=== PATIENT | female | born 1960 | race Caucasian/White ===

== ENCOUNTER → 2018-01-27 | Outpatient (REF) ==
[~2018-01-27] MED LIST: ALBU8.5H12 IH; ALP25 PO; AZIT500T47 PO; CEP500 PO; CETI10CA8 PO; CYCL10TA29 PO; KET10 PO; OMEP40CA48 PO; PRE20 PO; PROGESTERONE CREAM; SERT-179 PO; SERT-181 PO; SIMV10TA98 PO; TRAZ50 PO; ZOLP12.545 PO
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
--- NOTE | 2018-01-27 15:07 | RADIOLOGY IMAGING REPORT ---
FACILITY: [facility] [place] PATIENT NAME: Tye Beltran : 1960 MR: [id number] V: [id number] EXAM DATE: ORDERING PHYSICIAN: CARISA GRIMALDO TECHNOLOGIST: Location: [facility] Patient: Tye Beltran : 1960 Visit/Account:[id number] Date of Sevice: 01/27/2018 EXAMINATION: MRI Cervical spine without intravenous contrast HISTORY: Chronic neck pain. COMPARISON: Cervical spine radiographs dated 01/13/2006. TECHNIQUE: Multi-planar, multi-sequence cervical spine MRI was performed without intravenous contras t administration. FINDINGS: Alignment: Normal. Vertebral marrow signal: Small hemangioma in the left side of the T3 vertebral body. Mild discogenic bone marrow edema on the right at C4-C5. Mild reactive edema in the dens and right lateral mass of C1. Cranio-cervical junction: Degenerative changes in the atlantodental joint and right atlantoaxial join t. Normal alignment. Visualized posterior fossa: Negative. Soft tissues: Negative. Cervical cord: Negative. Disc Spaces: C1-2: No significant stenosis. C2-3: Negative. C3-4: Circumferential disc osteophyte complex and facet hypertrophy. No significant spinal canal mima nosis. Mild left neural foraminal stenosis. C4-5: Circumferential disc osteophyte complex and facet hypertrophy. Mild spinal canal stenosis. Mi ld bilateral neural foraminal stenosis. C5-6: Circumferential disc osteophyte complex and facet hypertrophy. Mild spinal canal stenosis. Mi ld right and moderate left neural foraminal stenosis. C6-7: Mild disc bulge. No significant stenosis. C7-T1: Mild facet hypertrophy. No significant stenosis. Upper thoracic spine: Mild degenerative changes with no significant stenosis. IMPRESSION: Multilevel degenerative disc disease and facet hypertrophy. Report Dictated By: Som Gagnon MD at 01/27/2018 2:59 PM Report E-Signed By: Som Gagnon MD at 01/27/2018 3:03 PM WSN:[id number]
== END ==
LOC: MRI 01:53
PROVIDERS: ATTEND Orthopaedic Surgery Orthopaedic Surgery of the Spine
DX: M53.82 Other specified dorsopathies, cervical region (principal); M54.5 Low back pain
CPT/HCPCS: 72100; 72141

== ENCOUNTER → 2018-07-14 | Outpatient (REF) ==
--- NOTE | 2018-07-15 08:20 | RADIOLOGY IMAGING REPORT ---
[place] [facility] [place]IENT NAME: ALBA FLORENCE : [id number] MR: [id number] V: [id number] EXAM DATE: [id number] ORDERING PHYSICIAN: ANH HAMILTON TECHNOLOGIST: Claudine Kilpatrick PROCEDURE:BILATERAL DIGITAL SCREENING MAMMOGRAM WITH CAD ASSISTED INTERPRETATION & 3D TOMOSYNTHESIS COMPARISON:Prior mammograms 03/05/15, 02/13/14, 02/17/13, 01/12/12. INDICATIONS:SCREENING FINDINGS: The breasts are heterogeneously dense which can obscure small masses. The parenchymal pattern has remained stable allowing for difference in mammographic technique & patient positioning. DIAGNOSTIC CATEGORY 1--NEGATIVE. RECOMMENDATIONS: ROUTINE MAMMOGRAM AND CLINICAL EVALUATION. IMPRESSION: BIRADS 1: Negative. No significant abnormality is seen. Dictated by: Smita Cevallos M.D. on 07/14/2018 at 15:13 Transcribed by: AGA on 07/14/2018 at 15:24 Approved by: Smita Cevallos M.D. on 07/15/2018 at 8:18 [facility]
== END ==
LOC: MAMO 01:36
PROVIDERS: ATTEND Nurse Practitioner Family
DX: Z12.31 Encounter for screening mammogram for malignant neoplasm of breast (principal)
CPT/HCPCS: 77063; 77067